=== PATIENT | female | born 1955 | race Caucasian/White ===

== ENCOUNTER 2018-09-11 10:15 | Day surgery (SDC) | payer OTHER ==
[2018-09-10 11:33] VITALS: BMI 27.6
[2018-09-11 11:59] VITALS: TEMP 97.8
[2018-09-11 12:53] VITALS: BP 105/66; PULSE 55
--- NOTE | 2018-09-14 14:30 | PATH ---
Surgical Pathology Report Patient Name: ANTHONY GILL [facility]. Rec. #: [id number] /Age/Gender: 1955 (Age: 62) / F Account: [id number] Location: U-ENDOSCOPY Taken: 09/11/2018 Received: 09/11/2018 Reported: 09/14/2018 Physicians: Denisha Crowley M.D. Specimen(s) Received A: RECTAL POLYPS B: RIGHT COLON POLYP Clinical History Colonic polyps, family history of colon cancer, surveillance adenoma Postoperative diagnosis: Diverticulosis, colon polyp Final Diagnosis A. RECTAL POLYPS, BIOPSY: COLONIC MUCOSA WITH INCREASED FOAMY HISTIOCYTES IN THE LAMINA PROPRIA, MAY REPRESENT A XANTHOMA. SEPARATE COLONIC MUCOSA WITH REACTIVE LYMPHOID AGGREGATE IN THE LAMINA PROPRIA. B. RIGHT COLON POLYP, POLYPECTOMY: TUBULAR ADENOMA. Electronically Signed Salvador Aguirre M.D. Gross Description A. Received in formalin, labeled "biopsy rectal polyps" are 4 schmid, irregular portions of soft tissue ranging from 0.1-0.2 cm. in greatest dimension. The specimens are submitted in toto in one cassette. B. Received in formalin, labeled "biopsy right colon polyp" are 7 schmid, irregular portions of soft tissue ranging from 0.1-0.5 cm. in greatest dimension. The specimens are submitted in toto in one cassette. 09/11/2018 saudi09/11/2018
== END 2018-09-11 12:53 | disposition home or self-care (01) ==
LOC: JASU-ENDO 10:15
PROVIDERS: ATTEND Internal Medicine Gastroenterology
PROC: 0DBP8ZX Excision of Rectum, Via Natural or Artificial Opening Endoscopic, Diagnostic (ICD-10-PCS; 2018-09-11)
PROC: 0DBK8ZX Excision of Ascending Colon, Via Natural or Artificial Opening Endoscopic, Diagnostic (ICD-10-PCS; principal; 2018-09-11 11:45)
DX: Z12.11 Encounter for screening for malignant neoplasm of colon (principal); Z86.010 Personal history of colon polyps; Z80.0 Family history of malignant neoplasm of digestive organs; K62.1 Rectal polyp; D12.2 Benign neoplasm of ascending colon; K57.30 Diverticulosis of large intestine without perforation or abscess without bleeding
CPT/HCPCS: 88305-TC

== ENCOUNTER 2021-09-17 04:03 | Inpatient (IN) | payer OTHER ==
[2021-09-13 11:38] VITALS: BMI 26.7
[2021-09-17] MEDS ORDERED: THROMBIN (BOVINE) 5,000 UNIT VIAL TP ONE ×3 (07:16→09:27)
[2021-09-17] MEDS ORDERED: BACITRACIN 15 GM TUBE TOPICAL OINTMENT ONE (07:16)
[2021-09-17] MEDS ORDERED: PROPOFOL 20 ML ONE ×13 (07:36→11:20)
[2021-09-17] MEDS ORDERED: MIDAZOLAM HCL 2 MG/2 ML SINGLE DOSE VIAL ONE ×2 (07:37→08:49)
[2021-09-17] MEDS ORDERED: SUCCINYLCHOLINE CHLORIDE 200 MG/10 ML SYRINGE ONE ×2 (07:37→10:21)
[2021-09-17] MEDS ORDERED: BENZOIN/ALOE VERA/STORAX/TOLU 58 ML BOTTLE ONE (08:42)
[2021-09-17] MEDS ORDERED: ceFAZolin 2 GRAM PREMIX BAG IVPB ONE (09:00)
[2021-09-17] MEDS ORDERED: THROMBIN (BOVINE) 20,000 UNIT VIAL TP ONE (09:00)
[2021-09-17] MEDS ORDERED: ceFAZolin SODIUM 1 GM VIAL ONE ×3 (09:02→23:50)
[2021-09-17] MEDS ORDERED: MINERAL OIL/PETROLATUM,WHITE 3.5 GM TUBE ONE (09:31)
[2021-09-17] MEDS ORDERED: DEXAMETHASONE SOD PHOSPHATE 4 MG/1 ML VIAL ONE (09:31)
[2021-09-17] MEDS ORDERED: LIDOCAINE HCL/PF 2% SDV 5ML VIAL ONE (09:31)
[2021-09-17] MEDS ORDERED: ALBUTEROL SO4 HFA INHALER IH ONE (09:31)
[2021-09-17] MEDS ORDERED: ONDANSETRON 4 MG/2 ML VIAL ONE (09:31)
[2021-09-17] MEDS ORDERED: ceFAZolin SODIUM 1 GM VIAL IVPB ONE (10:00)
[2021-09-17] MEDS ORDERED: ACETAMINOPHEN INJECTION 100 ML IVPB ONE (10:21)
[2021-09-17] MEDS ORDERED: diphenhydrAMINE HCL 25 MG CAPSULE (FP) PO PRN (12:00)
[2021-09-17] MEDS ORDERED: oxyCODONE HCL 5 MG TABLET PO PRN (12:00)
[2021-09-17] MEDS ORDERED: morphine SULFATE 4 MG/ML VIAL IVPUSH PRN (12:00)
[2021-09-17] MEDS ORDERED: PANTOPRAZOLE 40 MG TABLET PO PRN (12:02)
[2021-09-17] MEDS ORDERED: ONDANSETRON 4 MG/2 ML VIAL IVPUSH PRN (12:05)
[2021-09-17] MEDS ORDERED: PATIENT'S OWN MEDICATION (NON-FORMULARY) (Cholecalciferol (Vitamin D3) [Vitamin D3] 50 MCG PO SCH (12:15)
[2021-09-17] MEDS ORDERED: SODIUM CHLORIDE NASAL SPRAY 44 ML BOTTLE NS SCH (12:15)
[2021-09-17] MEDS: LACTATED RINGERS SOLUTION 1,000 ML/1,000 ML INFUS.BAG IV SCH ×3 (13:43→22:46)
[2021-09-17] MEDS: DOCUSATE SODIUM 100 MG CAPSULE (FP) PO SCH ×2 (15:42→21:27)
[2021-09-17] MEDS: HEPARIN NA (PORCINE) 5,000 UNITS/ML 1ML VIAL SQ SCH ×2 (15:42→21:27)
[2021-09-17] MEDS ORDERED: CEFAZOLIN 1 GM/D5W 1 GM/50 ML BAG IVPB SCH (18:00)
[2021-09-17] MEDS ORDERED: CEFAZOLIN 1 GM in DEXTROSE 5%-WATER - 50 ML IVPB SCH (18:58)
[2021-09-17] MEDS ORDERED: DEXTROSE 5%-WATER - 50 ML IVPB ONE ×2 (19:13→23:51)
[2021-09-17] MEDS: oxyCODONE HCL 5 MG TABLET PO PRN (19:41)
[2021-09-17] MEDS: CEFAZOLIN 1 GM in DEXTROSE 5%-WATER - 50 ML IVPB SCH (19:42)
[2021-09-18] MEDS: CEFAZOLIN 1 GM in DEXTROSE 5%-WATER - 50 ML IVPB SCH ×2 (01:57→10:15)
[2021-09-18] MEDS: DOCUSATE SODIUM 100 MG CAPSULE (FP) PO SCH ×3 (06:14→21:40)
[2021-09-18] MEDS: HEPARIN NA (PORCINE) 5,000 UNITS/ML 1ML VIAL SQ SCH ×3 (06:14→21:40)
[2021-09-18] MEDS: oxyCODONE HCL 5 MG TABLET PO PRN (06:15)
[2021-09-18] MEDS: LACTATED RINGERS SOLUTION 1,000 ML/1,000 ML INFUS.BAG IV SCH (06:19)
[2021-09-18] MEDS ORDERED: oxyCODONE HCL 5 MG TABLET PO PRN ×3 (08:24→08:25)
[2021-09-18 08:50] LABS: MCH 31.6 pg (25.7-33.7); MCHC 35.2 g/dl (32.0-36.0); MEAN CELL VOLUME 89.8 fl (80-96); MEAN PLT VOLUME 7.4 fl (7.5-11.1); PLATELET COUNT 286 10^3/uL (134-434); RBC 3.78 M/mm3 (3.60-5.2); RDW 13.5 % (11.6-15.6); WHITE BLOOD COUNT 10.6 K/mm3 (4.0-10.0)
[2021-09-18] MEDS: ONDANSETRON 4 MG/2 ML VIAL IVPUSH PRN ×2 (08:59→18:27)
[2021-09-18 09:11] LABS: BLOOD UREA NITROGEN 11.4 mg/dL (7-18); CALCIUM 8.6 mg/dL (8.5-10.1); MAGNESIUM 2.1 mg/dL (1.8-2.4)
[2021-09-18 09:14] LABS: CREATININE 0.7 mg/dL (0.55-1.3); PHOSPHOROUS 3.9 mg/dL (2.5-4.9)
[2021-09-18] MEDS ORDERED: DEXTROSE 5%-WATER - 50 ML IVPB ONE (09:39)
[2021-09-18] MEDS ORDERED: ceFAZolin SODIUM 1 GM VIAL ONE (09:39)
[2021-09-18] MEDS: FOLIC ACID 1 MG TABLET (FP) PO SCH (11:45)
[2021-09-18] MEDS: ACETAMINOPHEN 500 MG TABLET (FP) PO PRN ×2 (11:46→17:56)
[2021-09-19] MEDS: ACETAMINOPHEN 500 MG TABLET (FP) PO PRN ×3 (04:15→19:11)
[2021-09-19] MEDS: HEPARIN NA (PORCINE) 5,000 UNITS/ML 1ML VIAL SQ SCH ×3 (05:34→21:33)
[2021-09-19] MEDS: DOCUSATE SODIUM 100 MG CAPSULE (FP) PO SCH ×3 (05:34→21:33)
[2021-09-19] MEDS ORDERED: ONDANSETRON *ODT* 4 MG TABLET SL PRN (08:30)
[2021-09-19] MEDS: FOLIC ACID 1 MG TABLET (FP) PO SCH (09:42)
[2021-09-19] MEDS: PANTOPRAZOLE 40 MG TABLET PO SCH (09:42)
[2021-09-20] MEDS: ACETAMINOPHEN 500 MG TABLET (FP) PO PRN ×2 (02:02→10:18)
[2021-09-20] MEDS: DOCUSATE SODIUM 100 MG CAPSULE (FP) PO SCH (05:59)
[2021-09-20] MEDS: HEPARIN NA (PORCINE) 5,000 UNITS/ML 1ML VIAL SQ SCH (05:59)
[2021-09-20] MEDS ORDERED: BISACODYL 5 MG TABLET.DR (FP) PO ONE (08:15)
[2021-09-20] MEDS: PANTOPRAZOLE 40 MG TABLET PO SCH (10:16)
[2021-09-20] MEDS: FOLIC ACID 1 MG TABLET (FP) PO SCH (10:16)
[2021-09-20 12:06] VITALS: BP 102/67; PULSE 74; TEMP 98.7
== END 2021-09-20 16:06 | disposition home or self-care (01) | DRG 520 ==
LOC: J2C 04:03 → J8W 13:56
PROVIDERS: ADMIT Neurological Surgery; ATTEND Internal Medicine
PROC: 0PH304Z Insertion of Internal Fixation Device into Cervical Vertebra, Open Approach (ICD-10-PCS; 2021-09-17)
PROC: 4A11X4G Monitoring of Peripheral Nervous Electrical Activity, Intraoperative, External Approach (ICD-10-PCS; 2021-09-17)
PROC: 00NW0ZZ Release Cervical Spinal Cord, Open Approach (ICD-10-PCS; principal; 2021-09-17 08:00)
DX: M47.12 Other spondylosis with myelopathy, cervical region (principal); M48.02 Spinal stenosis, cervical region; R53.1 Weakness
CPT/HCPCS: 36415; 72050-TC-FY; 76000-TC-FY; 80048; 83735; 84100; 85027; 86850; 86900; 86901; 86922; 94010; 94760; 97116-GP; 97162-GP; J1644

== ENCOUNTER 2024-01-26 04:37 | Day surgery (SDC) | payer OTHER ==
[2024-01-22 11:08] VITALS: BMI 28.2
[2024-01-26 09:20] VITALS: TEMP 97.8
[2024-01-26 10:11] VITALS: BP 103/53; PULSE 60; RESP 14
== END 2024-01-26 10:22 | disposition home or self-care (01) ==
LOC: JASU-ENDO 04:37
PROVIDERS: ATTEND Internal Medicine Gastroenterology
PROC: 0DBN8ZX Excision of Sigmoid Colon, Via Natural or Artificial Opening Endoscopic, Diagnostic (ICD-10-PCS; 2024-01-26)
PROC: 0DB98ZX Excision of Duodenum, Via Natural or Artificial Opening Endoscopic, Diagnostic (ICD-10-PCS; 2024-01-26)
PROC: 0DB78ZX Excision of Stomach, Pylorus, Via Natural or Artificial Opening Endoscopic, Diagnostic (ICD-10-PCS; 2024-01-26)
PROC: 0DB68ZX Excision of Stomach, Via Natural or Artificial Opening Endoscopic, Diagnostic (ICD-10-PCS; 2024-01-26)
PROC: 0DB28ZX Excision of Middle Esophagus, Via Natural or Artificial Opening Endoscopic, Diagnostic (ICD-10-PCS; 2024-01-26)
PROC: 0DB38ZX Excision of Lower Esophagus, Via Natural or Artificial Opening Endoscopic, Diagnostic (ICD-10-PCS; 2024-01-26)
PROC: 0DBP8ZX Excision of Rectum, Via Natural or Artificial Opening Endoscopic, Diagnostic (ICD-10-PCS; principal; 2024-01-26 09:00)
DX: Z12.11 Encounter for screening for malignant neoplasm of colon (principal); K57.30 Diverticulosis of large intestine without perforation or abscess without bleeding; K64.8 Other hemorrhoids; D12.8 Benign neoplasm of rectum; D12.5 Benign neoplasm of sigmoid colon; K29.50 Unspecified chronic gastritis without bleeding; K21.00 Gastro-esophageal reflux disease with esophagitis, without bleeding; Z86.010 Personal history of colon polyps
CPT/HCPCS: 88305-TC; 88341-TC; 88342-TC

== ENCOUNTER 2025-03-24 06:24 | Day surgery (SDC) | payer OTHER ==
[2025-03-18 14:08] VITALS: BMI 28.2
[2025-03-24] MEDS ORDERED: ACETAMINOPHEN 500 MG TABLET (FP) PO PRN (08:58)
[2025-03-24 12:05] VITALS: BP 118/64; PULSE 68; RESP 20; TEMP 97.7
[2025-03-24] MEDS ORDERED: LIDOCAINE HCL/PF 1% SDV 5ML VIAL ONE ×2 (12:52→13:12)
[2025-03-24] MEDS: LIDOCAINE HCL 1% PRESERVATIVE FREE - 30ML VIAL INF ONE ×2 (12:55)
[2025-03-24] MEDS ORDERED: DEXAMETHASONE SOD PHOSPHATE 4 MG/1 ML VIAL ONE (13:12)
[2025-03-24] MEDS ORDERED: DEXAMETHASONE SOD PHOSPHATE 10 MG/1 ML VIAL ONE (13:16)
== END 2025-03-24 14:10 | disposition home or self-care (01) ==
LOC: JASU-SURG 06:24
PROVIDERS: ATTEND Pain Medicine Pain Medicine
PROC: 01HY0MZ Insertion of Neurostimulator Lead into Peripheral Nerve, Open Approach (ICD-10-PCS; principal; 2025-03-24 12:45)
DX: G89.4 Chronic pain syndrome (principal)
CPT/HCPCS: 64555; C1778; 76000-TC-FY; J1100